=== PATIENT | female | born 1950 | race Caucasian/White ===

== ENCOUNTER 2017-10-04 15:05 | Emergency (ER) | payer MEDICARE, OTHER ==
[~2017-10-04] VITALS: Ht 160 cm; Wt 97.3 kg
[2017-10-04 17:12] LABS: BASOPHILS % (AUTO) 0.5 % (0-1); EOSINOPHILS # (AUTO) 0.1 X10'3 (0-0.9); EOSINOPHILS % (AUTO) 1.4 % (0-6); HEMATOCRIT 36.9 % (35.0-45.0); HEMOGLOBIN 12.7 g/dl (12.0-16.0); LYMPHOCYTES # (AUTO) 2.3 X10'3 (1.1-4.8); LYMPHOCYTES % (AUTO) 26.4 % (21-51); MEAN CORPUSCULAR HEMOGLOBIN 31.7 PG (27.0-31.0); MEAN CORPUSCULAR HGB CONC 34.4 % (33.0-36.5); MEAN CORPUSCULAR VOLUME 92.4 FL (78-98); MEAN PLATELET VOLUME 8.7 FL (7.4-10.4); MONOCYTES # (AUTO) 0.7 X10'3 (0-0.9); MONOCYTES % (AUTO) 8.2 % (2-12); NEUTROPHILS # (AUTO) 5.6 X10'3 (1.8-7.7); NEUTROPHILS % (AUTO) 63.5 % (42-75); PLATELET COUNT 217 X10'3 (140-440); RED CELL DISTRIBUTION WIDTH 13.6 % (11.5-14.5); WHITE BLOOD COUNT 8.9 X10'3 (4.5-11.0)
[2017-10-04] MEDS ORDERED: cephalexin 250mg capsule PO ONE (17:15)
[2017-10-04] MEDS ORDERED: sulfamethoxazole/trimethoprim DS (800/160mg) tablet PO ONE (17:15)
[2017-10-04 17:23] LABS: ALANINE AMINOTRANSFERASE 27 U/L (12-78); ALBUMIN 3.6 G/DL (3.4-5.0); ALKALINE PHOSPHATASE 76 IU/L (46-116); ANION GAP 13 (8-16); ASPARTATE AMINO TRANSFERASE 15 U/L (10-37); BILIRUBIN,TOTAL 0.3 MG/DL (0.1-1.0); BLOOD UREA NITROGEN 25 MG/DL (7-18); BUN/CREATININE RATIO 22.9 (6.6-38.0); CALCIUM 8.7 MG/DL (8.5-10.1); CHLORIDE 104 MMOL/L (99-107); CREATININE 1.09 MG/DL (0.40-0.90); GLUCOSE 251 MG/DL (70-104); POTASSIUM 3.7 MMOL/L (3.5-5.1); SODIUM 141 MMOL/L (135-145); TOTAL CARBON DIOXIDE 24.4 MMOL/L (24-32); TOTAL PROTEIN 7.1 G/DL (6.4-8.2); eGFR 50 ML/MIN
[2017-10-04 17:30] VITALS: BP 152/79
[2017-10-04] MEDS ORDERED: SULF1TAB49 PO (17:36)
[2017-10-04] MEDS ORDERED: CEPH500C5 PO (17:37)
== END 2017-10-04 17:45 | disposition home or self-care (01) ==
LOC: ER 15:06
DX: L03.116 Cellulitis of left lower limb (principal); L08.9 Local infection of the skin and subcutaneous tissue, unspecified; E11.9 Type 2 diabetes mellitus without complications; E78.00 Pure hypercholesterolemia, unspecified; I10 Essential (primary) hypertension
CPT/HCPCS: 36415; 80053; 82948; 85025; 99284

== ENCOUNTER 2017-10-06 06:25 | Inpatient (IN) | payer MEDICARE, OTHER ==
[~2017-10-06] VITALS: Ht 160 cm; Wt 90.0 kg
[~2017-10-06 06:25] MED LIST: CEPH500C5 PO; SULF1TAB49 PO
[2017-10-06] MEDS ORDERED: piperacillin/tazo 3.375gm/50ml 50 ML IV ONE (07:35)
[2017-10-06] MEDS ORDERED: normal saline 1000ML IV soln IV ONE (07:35)
[2017-10-06] MEDS ORDERED: vancomycin/NS 1 GM ADD-VANTAGE 250 ML IV ONE (07:35)
[2017-10-06 08:15] LABS: INR 0.9 INR; PARTIAL THROMBOPLASTIN TIME 25 SECONDS (22-32); PROTHROMBIN TIME 9.6 SECONDS (9.0-12.0)
[2017-10-06 08:20] LABS: ALANINE AMINOTRANSFERASE 30 U/L (12-78); ALBUMIN 3.6 G/DL (3.4-5.0); ALBUMIN/GLOBULIN RATIO 0.9 (1.1-1.5); ALKALINE PHOSPHATASE 89 IU/L (46-116); ANION GAP 15 (8-16); ASPARTATE AMINO TRANSFERASE 16 U/L (10-37); BILIRUBIN,TOTAL 0.4 MG/DL (0.1-1.0); BLOOD UREA NITROGEN 24 MG/DL (7-18); BUN/CREATININE RATIO 22.4 (6.6-38.0); CALCIUM 8.8 MG/DL (8.5-10.1); CHLORIDE 103 MMOL/L (99-107); CREATININE 1.07 MG/DL (0.40-0.90); GLUCOSE 202 MG/DL (70-104); MAGNESIUM 1.5 MG/DL (1.5-2.4); SODIUM 138 MMOL/L (135-145); TOTAL CARBON DIOXIDE 20.4 MMOL/L (24-32); TOTAL PROTEIN 7.5 G/DL (6.4-8.2); eGFR 51 ML/MIN
[2017-10-06 08:21] LABS: BASOPHILS # (AUTO) 0.1 X10'3 (0-0.2); BASOPHILS % (AUTO) 0.6 % (0-1); EOSINOPHILS # (AUTO) 0.2 X10'3 (0-0.9); EOSINOPHILS % (AUTO) 1.7 % (0-6); HEMATOCRIT 38.3 % (35.0-45.0); HEMOGLOBIN 13.2 g/dl (12.0-16.0); LYMPHOCYTES # (AUTO) 2.2 X10'3 (1.1-4.8); MEAN CORPUSCULAR HEMOGLOBIN 31.8 PG (27.0-31.0); MEAN CORPUSCULAR HGB CONC 34.4 % (33.0-36.5); MEAN CORPUSCULAR VOLUME 92.4 FL (78-98); MEAN PLATELET VOLUME 9.1 FL (7.4-10.4); MONOCYTES # (AUTO) 0.8 X10'3 (0-0.9); MONOCYTES % (AUTO) 8.1 % (2-12); NEUTROPHILS # (AUTO) 6.1 X10'3 (1.8-7.7); NEUTROPHILS % (AUTO) 65.6 % (42-75); PLATELET COUNT 226 X10'3 (140-440); RED BLOOD COUNT 4.14 X10'6 (4.20-5.60); RED CELL DISTRIBUTION WIDTH 13.3 % (11.5-14.5); WHITE BLOOD COUNT 9.4 X10'3 (4.5-11.0)
[2017-10-06] MEDS ORDERED: ondansetron/PF 4mg/2ml inj IV PRN (09:00)
[2017-10-06] MEDS ORDERED: insulin Lispro (HumaLOG) vial - multi-dose SQ SCH (09:00)
[2017-10-06] MEDS ORDERED: potassium Cl 20 mEq SR tablet PO PRN ×2 (09:00)
[2017-10-06] MEDS ORDERED: dextrose 50%-water 50ml dispensing syringe IV PRN ×2 (09:00)
[2017-10-06] MEDS ORDERED: morphine 4 MG/ML inj SYRINge IV PRN (09:00)
[2017-10-06] MEDS ORDERED: glucagon, human recombinant 1mg kit SUBCUT PRN (09:00)
[2017-10-06] MEDS ORDERED: dextrose ORAL solution 15 GM/59 ML bottle PO PRN ×2 (09:00)
[2017-10-06] MEDS ORDERED: magnesium hydroxide 30ml (MOM) UD suspension PO PRN (09:00)
[2017-10-06] MEDS ORDERED: acetaminophen 325mg tablet PO PRN (09:00)
[2017-10-06] MEDS ORDERED: MESSAGE TO PHARMACY PO ONE (09:00)
[2017-10-06] MEDS ORDERED: mag hydrox/Alum hydrox/simeth 30ml oral suspension PO PRN (09:00)
[2017-10-06] MEDS ORDERED: potassium Cl 40MEQ/NS 500ml 500 ML IV PRN ×2 (09:00)
[2017-10-06] MEDS ORDERED: HYDROcodone/acetaminophen 5mg/325mg tablet PO PRN (09:00)
[2017-10-06 09:47] LABS: CLARITY,URINE CLEAR (Clear); COLOR,URINE STRAW (Yellow); GLUCOSE, URINE NEGATIVE (Neg); KETONES,URINE TRACE mg/dl (Neg); LEUKOCYTE ESTERASE ,URINE NEGATIVE (Neg); NITRITES, URINE NEGATIVE (Neg); OCCULT BLOOD,URINE NEGATIVE (Neg); PROTEIN,URINE NEGATIVE (Neg); UA COLLECTION TYPE CLN CATCH MIDSTREAM; UROBILINOGEN,URINE 0.2 E.U/dL (0.2-1.0)
[2017-10-06 14:00] VITALS: BP 158/84
[2017-10-06] MEDS: piperacillin/tazo 3.375gm/50ml 50 ML IV SCH ×2 (14:08→19:45)
[2017-10-06 15:00] VITALS: BP 176/76
[2017-10-06] MEDS ORDERED: UBID50TA3 PO (15:23)
[2017-10-06] MEDS ORDERED: DILT240C90 PO (15:23)
[2017-10-06] MEDS ORDERED: LISI10TA4 PO (15:23)
[2017-10-06] MEDS ORDERED: METF500T PO (15:23)
[2017-10-06] MEDS ORDERED: GLIM2TAB2 PO (15:23)
[2017-10-06] MEDS ORDERED: ATOR10TA70 PO (15:23)
[2017-10-06] MEDS: metFORMIN 500mg tablet PO SCH (17:39)
[2017-10-06 18:00] VITALS: BP 153/75
[2017-10-06] MEDS ORDERED: triamcinolone acet 0.1% cream 15gm TP SCH (20:00)
[2017-10-06] MEDS: atorvastatin 10mg tablet PO SCH (20:19)
[2017-10-06] MEDS: lactobacillus rhamnosus 10,000 MMU CELLS/CAPSULE PO SCH (20:19)
[2017-10-06] MEDS: docusate sod 100mg capsule PO SCH (20:19)
[2017-10-06] MEDS: vancomycin inj 1,250 MG in normal saline 250ml IV soln 250 ML IV SCH (20:20)
[2017-10-06] MEDS: insulin glargine (Lantus) pen - multi-dose SQ SCH (21:00)
[2017-10-06 22:00] VITALS: BP 164/76
[2017-10-07] MEDS: piperacillin/tazo 3.375gm/50ml 50 ML IV SCH ×4 (01:48→20:12)
[2017-10-07 04:56] LABS: BASOPHILS # (AUTO) 0.1 X10'3 (0-0.2); BASOPHILS % (AUTO) 0.8 % (0-1); EOSINOPHILS # (AUTO) 0.2 X10'3 (0-0.9); EOSINOPHILS % (AUTO) 2.2 % (0-6); HEMATOCRIT 34.6 % (35.0-45.0); LYMPHOCYTES # (AUTO) 2.6 X10'3 (1.1-4.8); LYMPHOCYTES % (AUTO) 36.3 % (21-51); MEAN CORPUSCULAR HEMOGLOBIN 31.9 PG (27.0-31.0); MEAN CORPUSCULAR HGB CONC 34.8 % (33.0-36.5); MEAN CORPUSCULAR VOLUME 91.7 FL (78-98); MEAN PLATELET VOLUME 8.9 FL (7.4-10.4); MONOCYTES # (AUTO) 0.6 X10'3 (0-0.9); MONOCYTES % (AUTO) 8.4 % (2-12); NEUTROPHILS # (AUTO) 3.8 X10'3 (1.8-7.7); NEUTROPHILS % (AUTO) 52.3 % (42-75); PLATELET COUNT 202 X10'3 (140-440); RED BLOOD COUNT 3.77 X10'6 (4.20-5.60); RED CELL DISTRIBUTION WIDTH 13.7 % (11.5-14.5); WHITE BLOOD COUNT 7.2 X10'3 (4.5-11.0)
[2017-10-07 05:00] VITALS: BP 159/75
[2017-10-07 05:00] LABS: ALBUMIN 3.1 G/DL (3.4-5.0); ANION GAP 13 (8-16); BLOOD UREA NITROGEN 12 MG/DL (7-18); BUN/CREATININE RATIO 15.2 (6.6-38.0); CALCIUM 9.1 MG/DL (8.5-10.1); CHLORIDE 104 MMOL/L (99-107); CREATININE 0.79 MG/DL (0.40-0.90); GLUCOSE 142 MG/DL (70-104); POTASSIUM 3.7 MMOL/L (3.5-5.1); SODIUM 141 MMOL/L (135-145); TOTAL CARBON DIOXIDE 24.3 MMOL/L (24-32); eGFR 72 ML/MIN
[2017-10-07] MEDS: metFORMIN 500mg tablet PO SCH ×2 (07:26→17:03)
[2017-10-07] MEDS: diltiazem CD 120mg capsule (once-daily) PO SCH (07:27)
[2017-10-07] MEDS: lactobacillus rhamnosus 10,000 MMU CELLS/CAPSULE PO SCH ×2 (07:28→20:12)
[2017-10-07] MEDS: K and/or MAG REPLACEMENT MC SCH (07:30)
[2017-10-07] MEDS: enoxaparin 40mg/0.4ml syringe SQ SCH (07:31)
[2017-10-07] MEDS: docusate sod 100mg capsule PO SCH ×2 (07:31→20:00)
[2017-10-07] MEDS ORDERED: glimepiride 1 MG tablet PO SCH (08:00)
[2017-10-07] MEDS ORDERED: GLIMEPIRIDE PO SCH (08:00)
[2017-10-07] MEDS ORDERED: lisinopril 10 MG tablet PO SCH (08:00)
[2017-10-07 10:00] VITALS: BP 162/72
[2017-10-07] MEDS: vancomycin inj 1,250 MG in normal saline 250ml IV soln 250 ML IV SCH ×2 (10:01→21:12)
[2017-10-07] MEDS ORDERED: NUT.TX.GLUC.INTOLER,LAC-FR,REG (BOOST GLUCOSE CONTROL) 237 ML PO SCH (17:00)
[2017-10-07 18:00] VITALS: BP 177/76
[2017-10-07] MEDS ORDERED: VANCOMYCIN LEVEL IV NR (19:30)
[2017-10-07] MEDS: lisinopril 10 MG tablet PO SCH (20:11)
[2017-10-07] MEDS: atorvastatin 10mg tablet PO SCH (20:12)
[2017-10-07] MEDS: insulin glargine (Lantus) pen - multi-dose SQ SCH (21:00)
[2017-10-07 22:00] VITALS: BP 162/73
[2017-10-08] MEDS: piperacillin/tazo 3.375gm/50ml 50 ML IV SCH ×2 (01:52→07:39)
[2017-10-08 05:00] VITALS: BP 159/72
[2017-10-08 05:33] LABS: BASOPHILS # (AUTO) 0.1 X10'3 (0-0.2); BASOPHILS % (AUTO) 0.9 % (0-1); EOSINOPHILS # (AUTO) 0.2 X10'3 (0-0.9); EOSINOPHILS % (AUTO) 2.5 % (0-6); HEMATOCRIT 36.7 % (35.0-45.0); HEMOGLOBIN 12.8 g/dl (12.0-16.0); LYMPHOCYTES % (AUTO) 27.8 % (21-51); MEAN CORPUSCULAR HEMOGLOBIN 31.8 PG (27.0-31.0); MEAN CORPUSCULAR HGB CONC 34.8 % (33.0-36.5); MEAN CORPUSCULAR VOLUME 91.4 FL (78-98); MEAN PLATELET VOLUME 8.7 FL (7.4-10.4); MONOCYTES # (AUTO) 0.6 X10'3 (0-0.9); MONOCYTES % (AUTO) 7.9 % (2-12); NEUTROPHILS # (AUTO) 4.5 X10'3 (1.8-7.7); NEUTROPHILS % (AUTO) 60.9 % (42-75); PLATELET COUNT 228 X10'3 (140-440); RED BLOOD COUNT 4.02 X10'6 (4.20-5.60); RED CELL DISTRIBUTION WIDTH 13.2 % (11.5-14.5); WHITE BLOOD COUNT 7.3 X10'3 (4.5-11.0)
[2017-10-08 06:17] LABS: ALBUMIN 3.3 G/DL (3.4-5.0); ANION GAP 10 (8-16); BLOOD UREA NITROGEN 17 MG/DL (7-18); BUN/CREATININE RATIO 18.9 (6.6-38.0); CALCIUM 9.5 MG/DL (8.5-10.1); CHLORIDE 104 MMOL/L (99-107); GLUCOSE 169 MG/DL (70-104); POTASSIUM 3.9 MMOL/L (3.5-5.1); SODIUM 143 MMOL/L (135-145); TOTAL CARBON DIOXIDE 28.9 MMOL/L (24-32); eGFR 62 ML/MIN
[2017-10-08] MEDS: metFORMIN 500mg tablet PO SCH (07:39)
[2017-10-08] MEDS: lactobacillus rhamnosus 10,000 MMU CELLS/CAPSULE PO SCH (07:42)
[2017-10-08] MEDS: diltiazem CD 120mg capsule (once-daily) PO SCH (07:42)
[2017-10-08] MEDS: lisinopril 10 MG tablet PO SCH (07:43)
[2017-10-08] MEDS: K and/or MAG REPLACEMENT MC SCH (08:00)
[2017-10-08] MEDS: docusate sod 100mg capsule PO SCH (08:00)
[2017-10-08] MEDS: enoxaparin 40mg/0.4ml syringe SQ SCH (08:00)
[2017-10-08] MEDS: vancomycin inj 1,250 MG in normal saline 250ml IV soln 250 ML IV SCH (08:25)
[2017-10-08 10:00] VITALS: BP 176/71
[2017-10-08] MEDS ORDERED: CANA300T PO (10:32)
[2017-10-08] MEDS ORDERED: AMLO5TAB4 PO (10:32)
== END 2017-10-08 13:10 | disposition home health service (06) | DRG 603 ==
LOC: ER 06:25 → ED HOLD 08:56 → S STAY 13:53 → ORTHO 4S 14:46
PROVIDERS: ADMIT Internal Medicine; ATTEND Internal Medicine
DX: L03.116 Cellulitis of left lower limb (principal); E66.01 Morbid (severe) obesity due to excess calories; E78.00 Pure hypercholesterolemia, unspecified; E78.5 Hyperlipidemia, unspecified; E11.65 Type 2 diabetes mellitus with hyperglycemia; I10 Essential (primary) hypertension; Z90.710 Acquired absence of both cervix and uterus; Z91.11 Patient's noncompliance with dietary regimen; Z79.899 Other long term (current) drug therapy; Z79.84 Long term (current) use of oral hypoglycemic drugs; Z68.35 Body mass index [BMI] 35.0-35.9, adult
CPT/HCPCS: 36415; 71045; 80048; 80053; 80202; 81003; 82948; 83036; 83605; 83735; 84145; 85025; 85610; 85730; 87040; 87070; 87075; 87102; 93005; 96365; 96368; 99285; A4649; A6196; A6212; A6446; J1650; J1815; J2543; J3370; J7030

== ENCOUNTER 2017-10-15 10:22 | Day surgery (SDC) | payer MEDICARE, OTHER ==
[~2017-10-15 10:22] MED LIST changes: +AMLO5TAB4 PO; +ATOR10TA70 PO; +CANA300T PO; -CEPH500C5 PO; +DILT240C90 PO; +GLIM2TAB2 PO; +LISI10TA4 PO; +METF500T PO; -SULF1TAB49 PO; +UBID50TA3 PO
[2017-10-15] MEDS ORDERED: LIDOcaine 2% 5ml jelly ONE (11:00)
== END 2017-10-15 11:35 | disposition home or self-care (01) ==
LOC: WOUND CARE 10:22
PROVIDERS: ATTEND Surgery
DX: S90.822A Blister (nonthermal), left foot, initial encounter (principal); I10 Essential (primary) hypertension; E78.5 Hyperlipidemia, unspecified; E66.01 Morbid (severe) obesity due to excess calories; E78.00 Pure hypercholesterolemia, unspecified; E11.65 Type 2 diabetes mellitus with hyperglycemia; Z90.710 Acquired absence of both cervix and uterus; Z68.35 Body mass index [BMI] 35.0-35.9, adult; Z79.84 Long term (current) use of oral hypoglycemic drugs; Z79.899 Other long term (current) drug therapy; X58.XXXA Exposure to other specified factors, initial encounter; Y93.89 Activity, other specified; Y92.89 Other specified places as the place of occurrence of the external cause; Y99.8 Other external cause status
CPT/HCPCS: 36416; 82948; 97597; A6021; A6206; A6209; A6446

== ENCOUNTER 2017-10-22 08:40 | Day surgery (SDC) | payer MEDICARE, OTHER ==
[2017-10-22] MEDS: LIDOcaine 2% 5ml jelly ONE (09:41)
== END 2017-10-22 10:56 | disposition home or self-care (01) ==
LOC: WOUND CARE 08:40
PROVIDERS: ATTEND Surgery
DX: E11.621 Type 2 diabetes mellitus with foot ulcer (principal); L97.521 Non-pressure chronic ulcer of other part of left foot limited to breakdown of skin; E11.40 Type 2 diabetes mellitus with diabetic neuropathy, unspecified; I10 Essential (primary) hypertension; E78.5 Hyperlipidemia, unspecified; E66.01 Morbid (severe) obesity due to excess calories; E78.00 Pure hypercholesterolemia, unspecified; E11.65 Type 2 diabetes mellitus with hyperglycemia; Z90.710 Acquired absence of both cervix and uterus; Z68.35 Body mass index [BMI] 35.0-35.9, adult; Z79.84 Long term (current) use of oral hypoglycemic drugs; Z79.899 Other long term (current) drug therapy
CPT/HCPCS: 36416; 82948; 97597; A6021; A6206; A6212

== ENCOUNTER 2017-10-29 09:40 | Day surgery (SDC) | payer MEDICARE, OTHER ==
[2017-10-29] MEDS ORDERED: LIDOcaine 2% 5ml jelly ONE (09:49)
== END 2017-10-29 11:00 | disposition home or self-care (01) ==
LOC: WOUND CARE 09:40
PROVIDERS: ATTEND Surgery
DX: E11.621 Type 2 diabetes mellitus with foot ulcer (principal); L97.521 Non-pressure chronic ulcer of other part of left foot limited to breakdown of skin; E11.40 Type 2 diabetes mellitus with diabetic neuropathy, unspecified; I10 Essential (primary) hypertension; E78.5 Hyperlipidemia, unspecified; E66.01 Morbid (severe) obesity due to excess calories; E78.00 Pure hypercholesterolemia, unspecified; E11.65 Type 2 diabetes mellitus with hyperglycemia; Z90.710 Acquired absence of both cervix and uterus; Z68.35 Body mass index [BMI] 35.0-35.9, adult; Z79.84 Long term (current) use of oral hypoglycemic drugs; Z79.899 Other long term (current) drug therapy
CPT/HCPCS: 36416; 82948; 97597; A6021; A6206; A6212; A6446

== ENCOUNTER 2017-11-05 08:25 | Day surgery (SDC) | payer MEDICARE, OTHER | END 2017-11-05 10:40 | disposition home or self-care (01) | LOC: WOUND CARE 08:25 | PROVIDERS: ATTEND Surgery | DX: E11.621 Type 2 diabetes mellitus with foot ulcer (principal); L97.521 Non-pressure chronic ulcer of other part of left foot limited to breakdown of skin; E11.40 Type 2 diabetes mellitus with diabetic neuropathy, unspecified; I10 Essential (primary) hypertension; E78.5 Hyperlipidemia, unspecified; E66.01 Morbid (severe) obesity due to excess calories; E78.00 Pure hypercholesterolemia, unspecified; E11.65 Type 2 diabetes mellitus with hyperglycemia; Z90.710 Acquired absence of both cervix and uterus; Z68.35 Body mass index [BMI] 35.0-35.9, adult; Z79.84 Long term (current) use of oral hypoglycemic drugs; Z79.899 Other long term (current) drug therapy | CPT/HCPCS: 82948; 99214; A6209 ==

== ENCOUNTER 2022-01-11 14:24 | Inpatient (IN) | payer MEDICARE ==
[~2022-01-11] VITALS: Ht 162.6 cm; Wt 100.0 kg
[~2022-01-11 14:24] MED LIST changes: -GLIM2TAB2 PO; +GLIM2TAB6 PO; +LISI10TA27 PO; -LISI10TA4 PO
[2022-01-11] MEDS ORDERED: acetaminophen 325mg tablet PO STA (14:45)
[2022-01-11 15:27] LABS: ALANINE AMINOTRANSFERASE 28 U/L (12-78); ALBUMIN/GLOBULIN RATIO 0.6 (1.1-1.5); ALKALINE PHOSPHATASE 78 IU/L (46-116); ANION GAP 15 (8-16); ASPARTATE AMINO TRANSFERASE 18 U/L (10-37); BASOPHILS # (AUTO) 0.1 X10'3 (0-0.2); BASOPHILS % (AUTO) 0.4 % (0-1); BILIRUBIN,TOTAL 0.7 MG/DL (0.1-1.0); BLOOD UREA NITROGEN 38 MG/DL (7-18); CALCIUM 9.3 MG/DL (8.5-10.1); CHLORIDE 100 MMOL/L (99-107); CREATININE 1.73 MG/DL (0.40-0.90); EOSINOPHILS % (AUTO) 0.1 % (0-6); GLUCOSE 101 MG/DL (70-104); HEMATOCRIT 34.7 % (35.0-45.0); HEMOGLOBIN 11.9 g/dl (12.0-16.0); LYMPHOCYTES # (AUTO) 0.9 X10'3 (1.1-4.8); MEAN CORPUSCULAR HEMOGLOBIN 33.6 PG (27.0-31.0); MEAN CORPUSCULAR HGB CONC 34.4 g/dL (33.0-36.5); MEAN CORPUSCULAR VOLUME 97.6 FL (78-98); MEAN PLATELET VOLUME 7.7 FL (7.4-10.4); MONOCYTES # (AUTO) 1.5 X10'3 (0-0.9); MONOCYTES % (AUTO) 10.2 % (2-12); NEUTROPHILS # (AUTO) 12.2 X10'3 (1.8-7.7); NEUTROPHILS % (AUTO) 83.3 % (42-75); PLATELET COUNT 373 X10'3 (140-440); POTASSIUM 3.1 MMOL/L (3.5-5.1); RED BLOOD COUNT 3.55 X10'6 (4.20-5.60); RED CELL DISTRIBUTION WIDTH 14.2 % (11.5-14.5); SODIUM 141 MMOL/L (135-145); TOTAL CARBON DIOXIDE 26.4 MMOL/L (24-32); TOTAL PROTEIN 7.9 G/DL (6.4-8.2); WHITE BLOOD COUNT 14.7 X10'3 (4.5-11.0); eGFR 29 ML/MIN
[2022-01-11 15:30] LABS: MAGNESIUM 2.1 MG/DL (1.5-2.4)
[2022-01-11] MEDS ORDERED: normal saline 1000ML IV soln IV ONE (15:35)
[2022-01-11] MEDS ORDERED: potassium Cl 20 mEq SR tablet PO STA (15:38)
[2022-01-11] MEDS ORDERED: CefTRIAXone 2gm/D5W 50ml BAG 50 ML IV ONE (15:40)
--- NOTE | 2022-01-11 16:51 | NUR ---
[facility] ([facility]): [phone]
[2022-01-11 17:16] LABS: CLARITY,URINE CLOUDY (Clear); COLOR,URINE YELLOW (Yellow); GLUCOSE, URINE NEGATIVE (Neg); KETONES,URINE NEGATIVE (Neg); LEUKOCYTE ESTERASE ,URINE LARGE (Neg); NITRITES, URINE POSITIVE (Neg); OCCULT BLOOD,URINE MODERATE (Neg); PROTEIN,URINE 30 mg/dl (Neg); UA COLLECTION TYPE CLN CATCH MIDSTREAM; UROBILINOGEN,URINE 0.2 E.U/dL (0.2-1.0)
[2022-01-11 17:22] LABS: WBC,URINE TNTC /HPF (0-4)
[2022-01-11 17:25] LABS: SQUAMOUS EPITHELIAL CELL,UR MODERATE /LPF (FEW)
[2022-01-11 17:28] LABS: BACTERIA,URINE 2+ /HPF (Neg)
[2022-01-11] MEDS ORDERED: HYDR12.55 PO (18:13)
[2022-01-11] MEDS ORDERED: PIOG30TA71 PO (18:13)
[2022-01-11] MEDS ORDERED: LISI20TA28 PO (18:13)
[2022-01-11] MEDS ORDERED: ATEN25TA PO (18:13)
[2022-01-11] MEDS ORDERED: MESSAGE TO PHARMACY PO ONE (18:30)
[2022-01-11] MEDS ORDERED: magnesium 4gm in 100ml NS 100 ML IV PRN (18:30)
[2022-01-11] MEDS ORDERED: docusate sod 100mg capsule PO PRN (18:30)
[2022-01-11] MEDS ORDERED: ondansetron/PF 4mg/2ml inj IV PRN (18:30)
[2022-01-11] MEDS ORDERED: glucagon, human recombinant 1mg kit SUBCUT PRN (18:30)
[2022-01-11] MEDS ORDERED: potassium Cl 40MEQ/1/2NS 520ml 520 ML IV PRN (18:30)
[2022-01-11] MEDS ORDERED: dextrose 50%-water 50ml dispensing syringe IV PRN ×2 (18:30)
[2022-01-11] MEDS ORDERED: HYDROcodone/acetaminophen 10/325mg tab PO PRN (18:30)
[2022-01-11] MEDS ORDERED: HYDROcodone/acetaminophen 5mg/325mg tablet PO PRN (18:30)
[2022-01-11] MEDS ORDERED: insulin Lispro (HumaLOG) vial - multi-dose SQ SCH (18:30)
[2022-01-11] MEDS ORDERED: acetaminophen 325mg tablet PO PRN ×2 (18:30)
[2022-01-11] MEDS ORDERED: DEXTROSE 15 GM of carb/4 tabs (each vial/BOTTLE has 4 tablets) PO PRN ×2 (18:30)
[2022-01-11] MEDS ORDERED: potassium Cl 20 mEq SR tablet PO PRN (18:30)
[2022-01-11] MEDS: normal saline 1000ml 1,000 ML IV SCH ×2 (18:57→21:41)
--- NOTE | 2022-01-11 19:01 | NUR ---
RN bringing pt two orange juices for BS 61
--- NOTE | 2022-01-11 19:47 | NUR ---
BS 100 after 2 orange juice. pt's son is coming with food
[2022-01-11 20:50] VITALS: BP 160/58
[2022-01-11] MEDS: atorvastatin 10mg tablet PO SCH (21:00)
[2022-01-11] MEDS: K and/or MAG REPLACEMENT MC SCH (21:30)
[2022-01-11] MEDS: insulin glargine (Lantus) pen - multi-dose SQ SCH (21:30)
[2022-01-11] MEDS: atenolol 25mg tablet PO SCH (21:40)
[2022-01-11] MEDS: enoxaparin 40mg/0.4ml syringe SQ SCH (21:41)
[2022-01-11 22:00] VITALS: BP 154/66
[2022-01-12] MEDS: potassium Cl 20 mEq SR tablet PO PRN ×4 (00:14→20:37)
[2022-01-12 06:24] LABS: BASOPHILS # (AUTO) 0.1 X10'3 (0-0.2); BASOPHILS % (AUTO) 0.5 % (0-1); EOSINOPHILS % (AUTO) 0.1 % (0-6); HEMATOCRIT 28.6 % (35.0-45.0); HEMOGLOBIN 9.9 g/dl (12.0-16.0); LYMPHOCYTES % (AUTO) 9.6 % (21-51); MEAN CORPUSCULAR HEMOGLOBIN 33.8 PG (27.0-31.0); MEAN CORPUSCULAR HGB CONC 34.5 g/dL (33.0-36.5); MEAN CORPUSCULAR VOLUME 97.8 FL (78-98); MEAN PLATELET VOLUME 7.8 FL (7.4-10.4); MONOCYTES # (AUTO) 1.3 X10'3 (0-0.9); MONOCYTES % (AUTO) 12.4 % (2-12); NEUTROPHILS # (AUTO) 7.9 X10'3 (1.8-7.7); NEUTROPHILS % (AUTO) 77.4 % (42-75); PLATELET COUNT 275 X10'3 (140-440); RED BLOOD COUNT 2.93 X10'6 (4.20-5.60); RED CELL DISTRIBUTION WIDTH 14.4 % (11.5-14.5); WHITE BLOOD COUNT 10.2 X10'3 (4.5-11.0)
--- NOTE | 2022-01-12 06:48 | NUR ---
Patient in room NURA 356. I have received report from Brenda FERRERA and had the opportunity to ask questions and assume patient care.
--- NOTE | 2022-01-12 06:53 | NUR ---
Problems reprioritized. Patient report given, questions answered & plan of care reviewed with MAISHA Arellano.
[2022-01-12 07:00] VITALS: BP 155/45
[2022-01-12 07:21] LABS: HEMOGLOBIN A1C 6.5 % (4.5-6.2)
[2022-01-12] MEDS: lisinopril 20mg tablet PO SCH (07:35)
[2022-01-12] MEDS: atenolol 25mg tablet PO SCH ×2 (07:35→20:38)
[2022-01-12] MEDS: diltiazem CD 120mg capsule (once-daily) PO SCH (07:36)
[2022-01-12 07:37] LABS: ANION GAP 13 (8-16); BLOOD UREA NITROGEN 23 MG/DL (7-18); BUN/CREATININE RATIO 18.7 (6.6-38.0); CHLORIDE 104 MMOL/L (99-107); CREATININE 1.23 MG/DL (0.40-0.90); GLUCOSE 108 MG/DL (70-104); POTASSIUM 3.2 MMOL/L (3.5-5.1); SODIUM 141 MMOL/L (135-145); TOTAL CARBON DIOXIDE 24.5 MMOL/L (24-32); eGFR 43 ML/MIN
[2022-01-12 07:38] LABS: ALANINE AMINOTRANSFERASE 23 U/L (12-78); ALBUMIN 2.3 G/DL (3.4-5.0); ALBUMIN/GLOBULIN RATIO 0.6 (1.1-1.5); ALKALINE PHOSPHATASE 61 IU/L (46-116); ASPARTATE AMINO TRANSFERASE 15 U/L (10-37); BILIRUBIN,TOTAL 0.4 MG/DL (0.1-1.0); CALCIUM 7.7 MG/DL (8.5-10.1); MAGNESIUM 1.7 MG/DL (1.5-2.4); TOTAL PROTEIN 6.2 G/DL (6.4-8.2)
[2022-01-12] MEDS: K and/or MAG REPLACEMENT MC SCH ×2 (08:00→20:00)
[2022-01-12] MEDS: normal saline 1000ml 1,000 ML IV SCH ×2 (08:08→16:41)
[2022-01-12 10:00] VITALS: BP 141/53
[2022-01-12] MEDS ORDERED: FLU VACC QS2022-23(6MOS UP)/PF 60 MCG/0.5 ML SYRINGE IMVAC ONE (10:00)
[2022-01-12] MEDS ORDERED: CefTRIAXone/D5W-Rocephin 1gm 50 ML IV SCH (16:00)
--- NOTE | 2022-01-12 18:19 | NUR ---
patient seen by Dr Pretty is to stay one more day. patient compliant. Accuchecks 84,89,94. Not requiring pain relief. Potassium replaced x2. Report given to Ann FERRERA
--- NOTE | 2022-01-12 18:30 | NUR ---
Patient in room NURA 356. I have received report from [facility] and had the opportunity to ask questions and assume patient care.
[2022-01-12 19:00] VITALS: BP 163/57
[2022-01-12] MEDS: atorvastatin 10mg tablet PO SCH (20:37)
[2022-01-12] MEDS: enoxaparin 40mg/0.4ml syringe SQ SCH (20:38)
[2022-01-12] MEDS: insulin glargine (Lantus) pen - multi-dose SQ SCH (20:39)
[2022-01-12 22:00] VITALS: BP 164/64
[2022-01-13] MEDS: normal saline 1000ml 1,000 ML IV SCH (05:25)
[2022-01-13 06:16] LABS: BASOPHILS # (AUTO) 0.1 X10'3 (0-0.2); BASOPHILS % (AUTO) 0.8 % (0-1); EOSINOPHILS % (AUTO) 0.6 % (0-6); HEMATOCRIT 27.1 % (35.0-45.0); HEMOGLOBIN 9.4 g/dl (12.0-16.0); LYMPHOCYTES # (AUTO) 1.2 X10'3 (1.1-4.8); LYMPHOCYTES % (AUTO) 14.1 % (21-51); MEAN CORPUSCULAR HEMOGLOBIN 33.9 PG (27.0-31.0); MEAN CORPUSCULAR HGB CONC 34.7 g/dL (33.0-36.5); MEAN CORPUSCULAR VOLUME 97.8 FL (78-98); MEAN PLATELET VOLUME 7.5 FL (7.4-10.4); NEUTROPHILS % (AUTO) 72.5 % (42-75); PLATELET COUNT 291 X10'3 (140-440); RED BLOOD COUNT 2.77 X10'6 (4.20-5.60); RED CELL DISTRIBUTION WIDTH 14.3 % (11.5-14.5); WHITE BLOOD COUNT 8.3 X10'3 (4.5-11.0)
--- NOTE | 2022-01-13 06:29 | NUR ---
Patient in room NURA 356. I have received report from Ann FERRERA and had the opportunity to ask questions and assume patient care.
[2022-01-13 06:34] LABS: ALANINE AMINOTRANSFERASE 23 U/L (12-78); ALBUMIN 2.2 G/DL (3.4-5.0); ALBUMIN/GLOBULIN RATIO 0.5 (1.1-1.5); ALKALINE PHOSPHATASE 58 IU/L (46-116); ANION GAP 11 (8-16); ASPARTATE AMINO TRANSFERASE 16 U/L (10-37); BILIRUBIN,TOTAL 0.3 MG/DL (0.1-1.0); BLOOD UREA NITROGEN 14 MG/DL (7-18); BUN/CREATININE RATIO 14.6 (6.6-38.0); CALCIUM 8.4 MG/DL (8.5-10.1); CHLORIDE 108 MMOL/L (99-107); CREATININE 0.96 MG/DL (0.40-0.90); GLUCOSE 131 MG/DL (70-104); MAGNESIUM 1.8 MG/DL (1.5-2.4); POTASSIUM 3.6 MMOL/L (3.5-5.1); SODIUM 142 MMOL/L (135-145); TOTAL CARBON DIOXIDE 23.5 MMOL/L (24-32); TOTAL PROTEIN 6.4 G/DL (6.4-8.2); eGFR 57 ML/MIN
[2022-01-13 06:49] VITALS: BP 154/82
--- NOTE | 2022-01-13 06:49 | NUR ---
Problems reprioritized. Patient report given, questions answered & plan of care reviewed with
[2022-01-13] MEDS: K and/or MAG REPLACEMENT MC SCH (08:00)
[2022-01-13] MEDS: diltiazem CD 120mg capsule (once-daily) PO SCH (08:27)
[2022-01-13] MEDS: atenolol 25mg tablet PO SCH (08:31)
[2022-01-13] MEDS: lisinopril 20mg tablet PO SCH (08:32)
[2022-01-13 10:00] VITALS: BP 135/46
[2022-01-13] MEDS ORDERED: LEVO-65 PO (11:23)
--- NOTE | 2022-01-13 11:51 | NUR ---
patient appears stable seen by DR Pretty is cleared for DC. All DC instructions given to patient. Patient awaiting ride home.
--- NOTE | 2022-01-13 12:22 | NUR ---
patient Dc home via private car with family member in stable condition
== END 2022-01-13 12:13 | disposition home or self-care (01) | DRG 871 ==
LOC: ER 14:25 → ED HOLD 18:34 → SUR 3N 20:50
PROVIDERS: ADMIT Family Medicine; ATTEND Family Medicine
DX: A41.9 Sepsis, unspecified organism (principal); G93.41 Metabolic encephalopathy; N17.0 Acute kidney failure with tubular necrosis; N39.0 Urinary tract infection, site not specified; B96.1 Klebsiella pneumoniae [K. pneumoniae] as the cause of diseases classified elsewhere; Z66 Do not resuscitate; E11.9 Type 2 diabetes mellitus without complications; E66.01 Morbid (severe) obesity due to excess calories; R30.0 Dysuria; E78.00 Pure hypercholesterolemia, unspecified; E86.0 Dehydration; E87.6 Hypokalemia; I10 Essential (primary) hypertension; Z79.84 Long term (current) use of oral hypoglycemic drugs; Z79.899 Other long term (current) drug therapy; Z82.49 Family history of ischemic heart disease and other diseases of the circulatory system; Z83.3 Family history of diabetes mellitus; Z90.710 Acquired absence of both cervix and uterus; Z68.37 Body mass index [BMI] 37.0-37.9, adult; Z23 Encounter for immunization
CPT/HCPCS: 36415; 70450; 71045; 80053; 81001; 82948; 83036; 83605; 83735; 84145; 84484; 85025; 87040; 87077; 87081; 87088; 87186; 96365; 97116; 97161; 97530; 99285; A6258; G0378; J0696; J1650; J1815; J7030; J7040